=== PATIENT | male | born 1960 | race Caucasian/White ===

== ENCOUNTER 2017-01-10 01:10 | Emergency (ER) | payer OTHER ==
[~2017-01-10] VITALS: Ht 175.3 cm; Wt 88.6 kg
[~2017-01-10 01:10] MED LIST: ESCI10TA PO; QUET100 PO; RISP1 PO
[2017-01-10 01:12] VITALS: BP 144/88; PULSE 93; RESP 16; TEMP 98.9; O2SAT 96
--- NOTE | 2017-01-10 03:44 | RADRPT ---
EXAM DATE/TIME: 01/10/2017 03:31 [facility] COMPARISON: No previous studies available for comparison. INDICATIONS : Pt fell early yesterday. Pain to left knee and lower back. MEDICAL HISTORY : None. SURGICAL HISTORY : None. ENCOUNTER: Initial ACUITY: 1 day PAIN SCORE: 6/10 LOCATION: Left knee FINDINGS: Four view examination of the left knee demonstrates no evidence of fracture or dislocation. Bony min eralization is normal. The articular surfaces are intact. There is fullness in the suprapatella burs a consistent with a joint effusion. There is mild soft tissue swelling over the patella. CONCLUSION: 1. Soft tissue swelling over the patella with no acute fracture or malalignment. 2. Fullness in the suprapatella bursa consistent with a joint effusion. Samuel Sosa MD on January 10, 2017 at 3:42 Board Certified Radiologist. This report was verified electronically.
--- NOTE | 2017-01-10 03:46 | RADRPT ---
EXAM DATE/TIME: 01/10/2017 03:29 [facility] COMPARISON: SPINE LUMBAR LTD (AP & LAT), August 04, 2013, 20:31. INDICATIONS : Pt fell early yesterday. Pain to left knee and lower back. MEDICAL HISTORY : None. SURGICAL HISTORY : None. ENCOUNTER: Initial ACUITY: 1 day PAIN SCORE: 6/10 LOCATION: Bilateral Lumbar FINDINGS: Two view examination was performed. There are five non-rib bearing vertebral bodies. The vertebral bodies are in stable alignment without evidence of acute subluxation or scoliosis. There is a mild re trolisthesis of L2 on L3 again noted. Degenerative disc changes are present with mild disc space narr owing and hypertrophic change. There is sparing of the L5-S1 level. Degenerative joint changes are no aba involving the lower facets. The pedicles are intact. Bony mineralization is normal. No fracture is identified. CONCLUSION: 1. No acute fracture or malalignment. 2. Degenerative disc and degenerative joint changes. Samuel Sosa MD on January 10, 2017 at 3:43 Board Certified Radiologist. This report was verified electronically.
--- NOTE | 2017-01-10 04:12 | PD ---
HPI Chief Complaint: Fall Time Seen by Provider: 03:11 Travel History International Travel<30 days: No Contact w/Intl Traveler<30days: No Traveled to known affect area: No History of Present Illness HPI 56-year-old male states that he was working up on a ladder about 10 feet high when a branch hit him on the head. He states he did not lose consciousness. He has pain to his head and his left knee. He states that this occurred yesterday at about 7 PM. Quality of pain is sharp. Severity is moderate. Pain is worse with movement. He denies other modifying factors. He denies other concurrent complaints. PFSH Past Medical History Inguinal Hernia: Yes (bilateral ) Medical other: Yes (mrsa) Psychiatric: No Tetanus Vaccination: Unknown Past Surgical History Other Surgery: Yes (skin grafts on rt leg) Social History Alcohol Use: Yes (rarely) Tobacco Use: Yes Substance Use: No Allergies-Medications (Allergen,Severity, Reaction): Coded Allergies: No Known Allergies (Unverified , 01/10/17) Reported Meds & Prescriptions Reported Meds & Active Scripts Active Review of Systems Except as stated in HPI: all other systems reviewed are Neg Physical Exam Narrative General: 56 y/o patient in no apparent distress Skin: trauma noted to left forehead with abrasion Eyes: pupils equal, eomi NECK: no pain with palpation, nexus criteria negative Cardiovascular: Regular rate and rhythm Respiratory: normal respiratory effort noted, clear to auscultation bilaterally Abdomen: soft, nontender, nondistended Back: No step-offs, midline spine nontender with palpation Extremities: Pain with palpation of left knee, no lacerations over, neurovascularly intact, no pain with palpation of other joints Neuro: awake, alert, sensation and motor grossly intact Data Data Last Documented VS Vital Signs Date Time Temp Pulse Resp B/P Pulse Ox O2 Delivery O2 Flow Rate FiO2 01/10/17 01:12 98.9 93 16 144/88 96 Room Air Orders Knee, Complete (4vws) (01/10/17 ) Spine, Lumbar - Ltd (Ap & Lat) (01/10/17 ) Ct Brain W/O Iv Contrast(Rout) (01/10/17 ) ^ Knee Immobilizer (01/10/17 03:47) MDM Medical Decision Making Medical Screen Exam Complete: Yes Emergency Medical Condition: Yes Medical Record Reviewed: Yes (pmh confirmed) Interpretation(s) Last 24 hours Impressions Lumbar Spine X-Ray 01/10/17 0000 Signed Impressions: Service Date/Time: Tuesday, January 10, 2017 03:29 - CONCLUSION: 1. No acute fracture or malalignment. 2. Degenerative disc and degenerative joint changes. Samuel Sosa MD Knee X-Ray 01/10/17 0000 Signed Impressions: Service Date/Time: Tuesday, January 10, 2017 03:31 - CONCLUSION: 1. Soft tissue swelling over the patella with no acute fracture or malalignment. 2. Fullness in the suprapatella bursa consistent with a joint effusion. Samuel Sosa MD Head CT 01/10/17 0000 Signed Impressions: Service Date/Time: Tuesday, January 10, 2017 03:36 - CONCLUSION: Negative trauma CT. Samuel Sosa MD Differential Diagnosis Fracture, strain, sprain, bleed Narrative Course Will check left knee x-ray and CT brain and reevaluate ed workup with emergent process, Patient denies any new complaints, knee immobilizer placed, advised outpatient MRI. Patient able to place weight and ambulate, all questions answered. Patient knows that follow up is incumbent on them and to return to the emergency room immediately if new or worsening symptoms develop. Patient given strict return precautions, vitals reviewed and are normal Diagnosis Primary Impression: Strain of left knee Qualified Code: S86.912A - Strain of left knee, initial encounter Additional Impression: Forehead abrasion Qualified Code: S00.81XA - Forehead abrasion, initial encounter Patient Instructions: General Instructions Additional Instructions: return as needed, tylenol as needed, follow with primary thursday, use walker and knee immobilizer with weightbearing as tolerated on left Med/Other Pt SpecificInfo: Prescription(s) given (walker) Disposition: 01 DISCHARGE HOME Condition: Stable Kayla Peralta MD Jan 10, 2017 04:12
--- NOTE | 2017-01-10 04:33 | RADRPT ---
EXAM DATE/TIME: 01/10/2017 03:36 [facility] COMPARISON: No previous studies available for comparison. INDICATIONS : Trauma; fall. RADIATION DOSE: 56.35 CTDIvol (mGy) MEDICAL HISTORY : None SURGICAL HISTORY : None. ENCOUNTER: Initial ACUITY: 1 day PAIN SCALE: 5/10 LOCATION: cranial TECHNIQUE: Multiple contiguous axial images were obtained of the head. Using automated exposure control and adj ustment of the mA and/or kV according to patient size, radiation dose was kept as low as reasonably a chievable to obtain optimal diagnostic quality images. FINDINGS: CEREBRUM: The ventricles are normal for age. No evidence of midline shift, mass lesion, hemorrhage or acute in farction. No extra-axial fluid collections are seen. POSTERIOR FOSSA: The cerebellum and brainstem are intact. The 4th ventricle is midline. The cerebellopontine angle i s unremarkable. EXTRACRANIAL: The visualized portion of the orbits is intact. SKULL: The calvaria is intact. No evidence of skull fracture. CONCLUSION: Negative trauma CT. Samuel Sosa MD on January 10, 2017 at 4:31 Board Certified Radiologist. This report was verified electronically.
== END 2017-01-10 05:21 | disposition home or self-care (01) ==
LOC: NEPC 01:10
DX: S00.81XA Abrasion of other part of head, initial encounter (principal); S83.92XA Sprain of unspecified site of left knee, initial encounter; W20.8XXA Other cause of strike by thrown, projected or falling object, initial encounter; Y93.H2 Activity, gardening and landscaping; Z72.0 Tobacco use
CPT/HCPCS: 70450; 72100; 73564

== ENCOUNTER 2017-01-27 07:06 | Emergency (ER) | payer OTHER ==
[~2017-01-27] VITALS: Ht 172.7 cm; Wt 83.0 kg
[2017-01-27 07:13] VITALS: BP 125/72; PULSE 72; RESP 14; TEMP 98.1; O2SAT 99
--- NOTE | 2017-01-27 07:38 | PD ---
HPI Chief Complaint: Psychiatric Symptoms Time Seen by Provider: 07:23 Travel History International Travel<30 days: No Contact w/Intl Traveler<30days: No Traveled to known affect area: No History of Present Illness HPI 56 y/o male states that he wants to kill his father's and children because he believes that they killed his father who had a heart attack last hernan are maybe the hernan before. He states after this he is given kill himself. He states he doesn't have a current plan how he is going to do it but he is afraid if he gets close to them help think of something. He denies other concurrent complaints other than feeling depressed. He states he's had these thoughts over the past couple of days. PFSH Past Medical History Inguinal Hernia: Yes (bilateral ) Psychiatric: No Past Surgical History Other Surgery: Yes (skin grafts on rt leg) Social History Alcohol Use: Yes (rarely) Tobacco Use: Yes Substance Use: No Allergies-Medications (Allergen,Severity, Reaction): Coded Allergies: No Known Allergies (Unverified , 01/27/17) Reported Meds & Prescriptions Reported Meds & Active Scripts Active No Active Prescriptions or Reported Medications Review of Systems Except as stated in HPI: all other systems reviewed are Neg Physical Exam Narrative GENERAL: Well-nourished, well-developed patient. Flat affect SKIN: Warm and dry. HEAD: Normocephalic and atraumatic. EYES: No injection or drainage. Pupils equal ENT: No nasal drainage noted. NECK: Supple, trachea midline. CARDIOVASCULAR: Regular rate and rhythm RESPIRATORY: No increased effort. No accessory muscle use. EXTREMITIES: No edema. NEUROLOGICAL: Awake and alert. Motor and sensory grossly within normal limits. Normal speech. Data Data Last Documented VS Vital Signs Date Time Temp Pulse Resp B/P Pulse Ox O2 Delivery O2 Flow Rate FiO2 01/27/17 07:42 77 18 01/27/17 07:13 98.1 125/72 99 Orders Complete Blood Count With Diff (01/27/17 07:24) Basic Metabolic Panel (Bmp) (01/27/17 07:24) Psych Screen (01/27/17 07:24) Drug Screen, Random Urine (01/27/17 07:24) Alcohol (Ethanol) (01/27/17 07:24) Blood Glucose (01/27/17 08:46) Labs Laboratory Tests Test 01/27/17 01/27/17 07:30 07:37 White Blood Count 6.5 TH/MM3 Red Blood Count 4.41 MIL/MM3 Hemoglobin 13.0 GM/DL Hematocrit 38.4 % Mean Corpuscular Volume 87.2 FL Mean Corpuscular Hemoglobin 29.4 PG Mean Corpuscular Hemoglobin 33.8 % Concent Red Cell Distribution Width 14.8 % Platelet Count 345 TH/MM3 Mean Platelet Volume 7.5 FL Neutrophils (%) (Auto) 56.2 % Lymphocytes (%) (Auto) 25.8 % Monocytes (%) (Auto) 13.7 % Eosinophils (%) (Auto) 3.1 % Basophils (%) (Auto) 1.2 % Neutrophils # (Auto) 3.7 TH/MM3 Lymphocytes # (Auto) 1.7 TH/MM3 Monocytes # (Auto) 0.9 TH/MM3 Eosinophils # (Auto) 0.2 TH/MM3 Basophils # (Auto) 0.1 TH/MM3 CBC Comment DIFF FINAL Differential Comment Sodium Level 139 MEQ/L Potassium Level 4.2 MEQ/L Chloride Level 105 MEQ/L Carbon Dioxide Level 29.4 MEQ/L Anion Gap 5 MEQ/L Blood Urea Nitrogen 18 MG/DL Creatinine 1.20 MG/DL Estimat Glomerular Filtration 63 ML/MIN Rate Random Glucose 71 MG/DL Calcium Level 8.2 MG/DL Ethyl Alcohol Level LESS THAN 3 MG/DL Urine Opiates Screen NEG Urine Barbiturates Screen NEG Urine Amphetamines Screen POS Urine Benzodiazepines Screen NEG Urine Cocaine Screen POS Urine Cannabinoids Screen POS MDM Medical Decision Making Medical Screen Exam Complete: Yes Emergency Medical Condition: Yes Medical Record Reviewed: Yes (past history confirmed) Interpretation(s) CBC & BMP Diagram 01/27/17 07:30 glucose 100 at 9 per staff Differential Diagnosis Electrolyte abnormality, depression, homicidal ideation Narrative Course Will check blood work and place [place] act and monitor labs wnl, medically cleared Diagnosis Primary Impression: Homicidal behavior Additional Impressions: Suicidal behavior Qualified Code: R46.89 - Suicidal behavior without attempted self-injury Polysubstance abuse Scripts No Active Prescriptions or Reported Meds Kayla Peralta MD Jan 27, 2017 07:38
[2017-01-27 07:51] LABS: AUTOMATED NEUTROPHIL # 3.7 TH/MM3 (1.8-7.7); BASOPHIL # 0.1 TH/MM3 (0-0.2); BASOPHIL % 1.2 % (0.0-2.0); EOSINOPHIL # 0.2 TH/MM3 (0-0.4); EOSINOPHIL % 3.1 % (0.0-4.0); HEMATOCRIT 38.4 % (39.0-51.0); HEMO FLAGS DIFF FINAL; LYMPH % 25.8 % (9.0-44.0); LYMPHOCYTE # 1.7 TH/MM3 (1.0-4.8); MEAN CELL VOLUME 87.2 FL (80.0-100.0); MEAN CORPUSCULAR HEMOGLOBIN 29.4 PG (27.0-34.0); MEAN CORPUSCULAR HGB CONC 33.8 % (32.0-36.0); MONO % 13.7 % (0.0-8.0); NEUT % 56.2 % (16.0-70.0); PLATELET COUNT 345 TH/MM3 (150-450); RED BLOOD COUNT 4.41 MIL/MM3 (4.50-5.90); RED CELL DISTRIBUTION WIDTH 14.8 % (11.6-17.2); WHITE BLOOD COUNT 6.5 TH/MM3 (4.0-11.0)
[2017-01-27 07:58] LABS: AMPHETAMINE, URINE POS (NEG); BARBITURATES, URINE NEG (NEG); COCAINE, URINE POS (NEG)
[2017-01-27 08:15] LABS: ANION GAP 5 MEQ/L (5-15); BICARBONATE 29.4 MEQ/L (21.0-32.0); BLOOD UREA NITROGEN 18 MG/DL (7-18); CHLORIDE 105 MEQ/L (98-107); GLOMERULAR FILTRATION RATE 63 ML/MIN (>89); POTASSIUM 4.2 MEQ/L (3.5-5.1); SODIUM (NA) 139 MEQ/L (136-145)
== END 2017-01-27 16:08 ==
LOC: NEPC 07:06 → NEPJ 16:08
DX: R46.89 Other symptoms and signs involving appearance and behavior (principal); R45.850 Homicidal ideations; Z72.0 Tobacco use
CPT/HCPCS: 80048; 80307; 85025; 99284

== ENCOUNTER 2017-07-14 19:00 | Emergency (ER) | payer OTHER ==
[2017-07-14 19:06] VITALS: BP 141/89; PULSE 81; RESP 16; TEMP 97.9; O2SAT 98
[2017-07-14 20:32] LABS: AUTOMATED NEUTROPHIL # 4.2 TH/MM3 (1.8-7.7); BASOPHIL # 0.1 TH/MM3 (0-0.2); BASOPHIL % 0.9 % (0.0-2.0); EOSINOPHIL # 0.2 TH/MM3 (0-0.4); EOSINOPHIL % 2.5 % (0.0-4.0); HEMATOCRIT 38.8 % (39.0-51.0); HEMO FLAGS DIFF FINAL; LYMPHOCYTE # 2.3 TH/MM3 (1.0-4.8); MEAN CELL VOLUME 89.2 FL (80.0-100.0); MEAN CORPUSCULAR HEMOGLOBIN 30.8 PG (27.0-34.0); MEAN CORPUSCULAR HGB CONC 34.6 % (32.0-36.0); MONO % 8.1 % (0.0-8.0); NEUT % 57.5 % (16.0-70.0); PLATELET COUNT 292 TH/MM3 (150-450); RED BLOOD COUNT 4.35 MIL/MM3 (4.50-5.90); RED CELL DISTRIBUTION WIDTH 13.9 % (11.6-17.2); WHITE BLOOD COUNT 7.3 TH/MM3 (4.0-11.0)
[2017-07-14 20:50] LABS: ANION GAP 8 MEQ/L (5-15); AST (GOT) 71 U/L (15-37); BICARBONATE 25.1 MEQ/L (21.0-32.0); BLOOD UREA NITROGEN 6 MG/DL (7-18); CHLORIDE 106 MEQ/L (98-107); GLOMERULAR FILTRATION RATE 69 ML/MIN (>89); POTASSIUM 3.8 MEQ/L (3.5-5.1); SODIUM (NA) 139 MEQ/L (136-145)
[2017-07-14 20:54] LABS: ALKALINE PHOSPHATASE 59 U/L (45-117); ALT (GPT) 61 U/L (12-78); TOTAL BILIRUBIN ADULT 0.3 MG/DL (0.2-1.0)
[2017-07-14 21:01] LABS: ACETAMINOPHEN LESS THAN 2.0 MCG/ML (10.0-30.0); ALCOHOL 6 MG/DL (0-5)
--- NOTE | 2017-07-14 21:13 | PD ---
HPI Chief Complaint: Psychiatric Symptoms Time Seen by Provider: 21:08 Travel History International Travel<30 days: No Contact w/Intl Traveler<30days: No Traveled to known affect area: No History of Present Illness HPI 57-year-old male presents voluntarily requesting psychiatric evaluation of paranoia. 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 2 days ago he was going on a fishing boat and the other croup members of the boat were acting strange and he felt paranoid. He jumped off the boat. He has continued to feel paranoid since then. He feels like people are constantly watching him. He denies any suicidal or homicidal ideation. He denies any alcohol use. He reports a remote history of methamphetamine use but denies any recent history. His drug screen today is currently positive for amphetamines. [facility] Past Medical History Depression: Yes Diabetes: No Inguinal Hernia: Yes (bilateral ) Musculoskeletal: Yes (LEFT KNEE TORN LIGAMENT) Psychiatric: Yes (was hospitlized for 6 months ) Seizures: No Past Surgical History Other Surgery: Yes (skin grafts on rt leg, hernia surgery ) Social History Alcohol Use: Yes (rarely) Tobacco Use: Yes Substance Use: Yes Allergies-Medications (Allergen,Severity, Reaction): Coded Allergies: No Known Allergies (Unverified Adverse Reaction, Unknown, 07/14/17) Reported Meds & Prescriptions Reported Meds & Active Scripts Active No Active Prescriptions or Reported Medications Review of Systems Except as stated in HPI: all other systems reviewed are Neg Physical Exam Narrative GENERAL: Well-developed well-nourished male in no acute distress SKIN: Warm and dry. HEAD: Atraumatic. Normocephalic. EYES: Pupils equal and round. No scleral icterus. No injection or drainage. ENT: No nasal bleeding or discharge. Mucous membranes pink and moist. NECK: Trachea midline. No JVD. CARDIOVASCULAR: Regular rate and rhythm. No murmur appreciated. RESPIRATORY: No accessory muscle use. Clear to auscultation. Breath sounds equal bilaterally. GASTROINTESTINAL: Abdomen soft, non-tender, nondistended. Hepatic and splenic margins not palpable. MUSCULOSKELETAL: No obvious deformities. No clubbing. No cyanosis. No edema. NEUROLOGICAL: Awake and alert. No obvious cranial nerve deficits. Motor grossly within normal limits. Normal speech. PSYCHIATRIC: Appropriate mood and affect; insight and judgment appear limited. Data Data Last Documented VS Vital Signs Date Time Temp Pulse Resp B/P (MAP) Pulse Ox O2 Delivery O2 Flow Rate FiO2 07/15/17 03:37 73 17 111/67 (82) 96 Room Air 07/14/17 19:06 97.9 Orders Orders Complete Blood Count With Diff (07/14/17 19:21) Comprehensive Metabolic Panel (07/14/17 19:21) Psych Screen (07/14/17 19:21) Drug Screen, Random Urine (07/14/17 19:21) Alcohol (Ethanol) (07/14/17 19:21) Salicylates (Aspirin) (07/14/17 19:21) Tylenol (Acetaminophen) (07/14/17 19:21) Diet Regular Basic (07/15/17 Breakfast) Labs Laboratory Tests Test 07/14/17 19:49 07/14/17 20:19 White Blood Count 7.3 TH/MM3 Red Blood Count 4.35 MIL/MM3 Hemoglobin 13.4 GM/DL Hematocrit 38.8 % Mean Corpuscular Volume 89.2 FL Mean Corpuscular Hemoglobin 30.8 PG Mean Corpuscular Hemoglobin Concent 34.6 % Red Cell Distribution Width 13.9 % Platelet Count 292 TH/MM3 Mean Platelet Volume 8.0 FL Neutrophils (%) (Auto) 57.5 % Lymphocytes (%) (Auto) 31.0 % Monocytes (%) (Auto) 8.1 % Eosinophils (%) (Auto) 2.5 % Basophils (%) (Auto) 0.9 % Neutrophils # (Auto) 4.2 TH/MM3 Lymphocytes # (Auto) 2.3 TH/MM3 Monocytes # (Auto) 0.6 TH/MM3 Eosinophils # (Auto) 0.2 TH/MM3 Basophils # (Auto) 0.1 TH/MM3 CBC Comment DIFF FINAL Differential Comment Blood Urea Nitrogen 6 MG/DL Creatinine 1.10 MG/DL Random Glucose 78 MG/DL Total Protein 7.9 GM/DL Albumin 3.6 GM/DL Calcium Level 8.2 MG/DL Alkaline Phosphatase 59 U/L Aspartate Amino Transf (AST/SGOT) 71 U/L Alanine Aminotransferase (ALT/SGPT) 61 U/L Total Bilirubin 0.3 MG/DL Sodium Level 139 MEQ/L Potassium Level 3.8 MEQ/L Chloride Level 106 MEQ/L Carbon Dioxide Level 25.1 MEQ/L Anion Gap 8 MEQ/L Estimat Glomerular Filtration Rate 69 ML/MIN Urine Opiates Screen NEG Acetaminophen Level LESS THAN 2.0 MCG/ML Urine Barbiturates Screen NEG Urine Amphetamines Screen POS Urine Benzodiazepines Screen NEG Urine Cocaine Screen NEG Urine Cannabinoids Screen POS Ethyl Alcohol Level 6 MG/DL Salicylates Level 2.2 MG/DL MDM Medical Decision Making Medical Screen Exam Complete: Yes Emergency Medical Condition: Yes Medical Record Reviewed: Yes Differential Diagnosis Substance induced paranoia versus acute psychosis versus schizoaffective disorder versus schizophrenia Narrative Course 57-year-old male presents for evaluation of paranoia. His drug screen is positive for amphetamines and cannabinoids. Mental health screening discussed with the patient. Psychiatric screen ordered. The patient is medically cleared for psychiatric disposition. Diagnosis Primary Impression: Polysubstance abuse Additional Impression: Paranoia Scripts No Active Prescriptions or Reported Meds Aniceto Medrano Jul 14, 2017 21:12
[2017-07-14 23:51] VITALS: BP 105/60; PULSE 71; RESP 18; O2SAT 97
[2017-07-15 03:37] VITALS: BP 111/67; PULSE 73; RESP 17; O2SAT 96
[2017-07-15 06:32] VITALS: BP 131/66; PULSE 75; RESP 18
[2017-07-15 11:06] VITALS: BP 131/66; PULSE 75; RESP 18
--- NOTE | 2017-07-15 11:07 | PD ---
Physical Exam Time Seen by Provider: 11:[address] Bansal has evaluated the patient and cleared the patient for discharge. Data Data Last Documented VS Vital Signs Date Time Temp Pulse Resp B/P (MAP) Pulse Ox O2 Delivery O2 Flow Rate FiO2 07/15/17 06:32 75 18 131/66 (87) 07/15/17 03:37 96 Room Air 07/14/17 19:06 97.9 Orders Orders Complete Blood Count With Diff (07/14/17 19:21) Comprehensive Metabolic Panel (07/14/17 19:21) Psych Screen (07/14/17 19:21) Drug Screen, Random Urine (07/14/17 19:21) Alcohol (Ethanol) (07/14/17 19:21) Salicylates (Aspirin) (07/14/17 19:21) Tylenol (Acetaminophen) (07/14/17 19:21) Diet Regular Basic (07/15/17 Breakfast) Diet Regular Basic (07/15/17 Lunch) Labs Laboratory Tests Test 07/14/17 19:49 07/14/17 20:19 White Blood Count 7.3 TH/MM3 Red Blood Count 4.35 MIL/MM3 Hemoglobin 13.4 GM/DL Hematocrit 38.8 % Mean Corpuscular Volume 89.2 FL Mean Corpuscular Hemoglobin 30.8 PG Mean Corpuscular Hemoglobin Concent 34.6 % Red Cell Distribution Width 13.9 % Platelet Count 292 TH/MM3 Mean Platelet Volume 8.0 FL Neutrophils (%) (Auto) 57.5 % Lymphocytes (%) (Auto) 31.0 % Monocytes (%) (Auto) 8.1 % Eosinophils (%) (Auto) 2.5 % Basophils (%) (Auto) 0.9 % Neutrophils # (Auto) 4.2 TH/MM3 Lymphocytes # (Auto) 2.3 TH/MM3 Monocytes # (Auto) 0.6 TH/MM3 Eosinophils # (Auto) 0.2 TH/MM3 Basophils # (Auto) 0.1 TH/MM3 CBC Comment DIFF FINAL Differential Comment Blood Urea Nitrogen 6 MG/DL Creatinine 1.10 MG/DL Random Glucose 78 MG/DL Total Protein 7.9 GM/DL Albumin 3.6 GM/DL Calcium Level 8.2 MG/DL Alkaline Phosphatase 59 U/L Aspartate Amino Transf (AST/SGOT) 71 U/L Alanine Aminotransferase (ALT/SGPT) 61 U/L Total Bilirubin 0.3 MG/DL Sodium Level 139 MEQ/L Potassium Level 3.8 MEQ/L Chloride Level 106 MEQ/L Carbon Dioxide Level 25.1 MEQ/L Anion Gap 8 MEQ/L Estimat Glomerular Filtration Rate 69 ML/MIN Urine Opiates Screen NEG Acetaminophen Level LESS THAN 2.0 MCG/ML Urine Barbiturates Screen NEG Urine Amphetamines Screen POS Urine Benzodiazepines Screen NEG Urine Cocaine Screen NEG Urine Cannabinoids Screen POS Ethyl Alcohol Level 6 MG/DL Salicylates Level 2.2 MG/DL MDM Supervised Visit with [facility]: No Narrative Course Dr. Bansal has evaluated the patient and cleared the patient for discharge. [facility] transport is taking the patient to [facility]. Patient contracts safety. Denies suicidal or homicidal ideations. Patient will be provided community resource packet to /[facility] for follow-up. Has friends and family for support. Patient was medically cleared by alternate provider prior to psych screening. Patient has been evaluated by psychiatry and and is now cleared for discharge. Diagnosis Primary Impression: Polysubstance abuse Additional Impression: Paranoia Referrals: [facility] (Out patient) [facility] Primary Care Physician Psychiatrist [facility] Patient Instructions: General Instructions, Methamphetamine Abuse (ED), Paranoid Personality Disorder (ED), Polysubstance Abuse (ED) Additional Instruction: Contract safety to your self and others Stop Doing drugs Follow-up with psychiatry Follow-up with primary care provider Follow-up with [facility] Return to the emergency department immediately with worsening of symptoms Med/Other Pt SpecificInfo: No Change to Meds, No Meds Exist/No RX given Scripts No Active Prescriptions or Reported Meds Disposition: 01 DISCHARGE HOME Condition: Stable Jessica Butler Jul 15, 2017 11:07
[2017-07-15 11:18] VITALS: BP 147/82; PULSE 72; RESP 16; O2SAT 96
== END 2017-07-15 12:26 ==
LOC: NEPJ 19:00
DX: F15.10 Other stimulant abuse, uncomplicated (principal); F12.10 Cannabis abuse, uncomplicated; F22 Delusional disorders; F32.9 Major depressive disorder, single episode, unspecified; Z72.0 Tobacco use
CPT/HCPCS: 80053; 80307; 85025; 99285

== ENCOUNTER 2017-08-07 00:28 | Emergency (ER) | payer OTHER ==
[~2017-08-07] VITALS: Ht 172.7 cm; Wt 83.0 kg
[2017-08-07 00:40] VITALS: BP 174/108; PULSE 95; RESP 18; TEMP 99; O2SAT 97
--- NOTE | 2017-08-07 01:00 | PD ---
HPI Chief Complaint: Psychiatric Symptoms Time Seen by Provider: 01:00 Travel History International Travel<30 days: No Contact w/Intl Traveler<30days: No Traveled to known affect area: No History of Present Illness HPI 57-year-old male presents to emergency department under [place] act for psychiatric evaluation. Patient was initially seen and medically cleared at [facility]. He was transferred here by police. 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 He states that to avoid this he went to [facility] for a [place] act so he could contact police and let them know what was going on. Denies any suicidal ideations. States he is fearful for his life. Denies any acute medical needs. He has no other symptoms to report. [facility] Past Medical History Depression: Yes Diabetes: No Inguinal Hernia: Yes (bilateral ) Musculoskeletal: Yes (LEFT KNEE TORN LIGAMENT) Psychiatric: Yes (was hospitlized for 6 months ) Seizures: No Past Surgical History Other Surgery: Yes (skin grafts on rt leg, hernia surgery ) Social History Alcohol Use: Yes (rarely) Tobacco Use: Yes Substance Use: Yes Allergies-Medications (Allergen,Severity, Reaction): Coded Allergies: No Known Allergies (Unverified Adverse Reaction, Unknown, 08/07/17) Reported Meds & Prescriptions Reported Meds & Active Scripts Active No Active Prescriptions or Reported Medications Review of Systems Except as stated in HPI: all other systems reviewed are Neg Physical Exam Narrative GENERAL: Well-nourished male patient in no acute distress. SKIN: Focused skin assessment warm/dry. HEAD: Atraumatic. Normocephalic. EYES: Pupils equal and round. No scleral icterus. No injection or drainage. ENT: No nasal bleeding or discharge. Mucous membranes pink and moist. NECK: Trachea midline. No JVD. CARDIOVASCULAR: Elevated rate and rhythm. No murmur appreciated. RESPIRATORY: No accessory muscle use. Clear to auscultation. Breath sounds equal bilaterally. GASTROINTESTINAL: Abdomen soft, non-tender, nondistended. Hepatic and splenic margins not palpable. MUSCULOSKELETAL: No obvious deformities. No clubbing. No cyanosis. No edema. NEUROLOGICAL: Awake and alert. No obvious cranial nerve deficits. Motor grossly within normal limits. Normal speech. Data Data Last Documented VS Vital Signs Date Time Temp Pulse Resp B/P (MAP) Pulse Ox O2 Delivery O2 Flow Rate FiO2 08/07/17 02:02 94 18 145/81 (102) 97 Room Air 08/07/17 00:40 99.0 Orders Orders Psych Screen (08/07/17 00:49) Drug Screen, Random Urine (08/07/17 01:01) Labs Laboratory Tests Test 08/07/17 00:45 Urine Opiates Screen NEG Urine Barbiturates Screen NEG Urine Amphetamines Screen POS Urine Benzodiazepines Screen NEG Urine Cocaine Screen NEG Urine Cannabinoids Screen POS MDM Medical Decision Making Medical Screen Exam Complete: Yes Emergency Medical Condition: Yes Medical Record Reviewed: Yes Differential Diagnosis Mood disorder versus personality disorder versus adjustment reaction disorder Narrative Course 57-year-old male presents emergency department under [place] act. Patient has a medically cleared by [facility] emergency department. I have reviewed the records and patient remains medically cleared. Urine drug screen is added. Patient is medically cleared for psychiatric screening for further evaluation and disposition. Mental health screening discussed with the patient. Psychiatric screen ordered. Diagnosis Primary Impression: Major depressive disorder, recurrent, severe with psychotic features Scripts No Active Prescriptions or Reported Meds Condition: Stable Nicki Stark Aug 07, 2017 01:00
[2017-08-07 02:02] VITALS: BP 145/81; PULSE 94; RESP 18; O2SAT 97
[2017-08-07] MEDS ORDERED: OLANZapine 10 MG TAB PO ONE (08:30)
[2017-08-07 10:24] VITALS: BP 115/67; PULSE 83; RESP 16; O2SAT 97
[2017-08-07 11:10] VITALS: BP 115/67; PULSE 83; RESP 18; O2SAT 97
== END 2017-08-07 13:16 ==
LOC: NEPJ 00:28
DX: F33.3 Major depressive disorder, recurrent, severe with psychotic symptoms (principal); Z72.0 Tobacco use
CPT/HCPCS: 80307; 99285

== ENCOUNTER 2017-09-21 23:44 | Emergency (ER) | payer SELFPAY ==
[~2017-09-21] VITALS: Ht 172.7 cm; Wt 84.3 kg
[2017-09-21 23:56] VITALS: BP 154/97; PULSE 110; RESP 14; TEMP 98.3; O2SAT 94
[2017-09-22 01:14] VITALS: PULSE 95; O2SAT 97
--- NOTE | 2017-09-22 02:15 | PD ---
HPI Chief Complaint: Psychiatric Symptoms Time Seen by Provider: 02:07 Travel History International Travel<30 days: No Contact w/Intl Traveler<30days: No Traveled to known affect area: No History of Present Illness HPI 57-year-old male presents to the emergency department by private transportation for evaluation of depression. Patient states he has a long-standing history of anxiety and depression. Patient states he was recently [place] act recipient in August and stayed at [facility] for 7 days and was discharged with a prescription for lorazepam which she did not fill. Patient states he does not want to take this medication. Patient states that he is presenting at this time due to depression and being very upset about his father's as he is convinced that she had something to do with her father's . Patient states that he is concerned that he would harm the people who now live in his father's home. Patient decided to come to the emergency room. Patient has no specific plan. Patient denies being suicidal. 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 LAST USE WAS AROUND [place]) Allergies-Medications (Allergen,Severity, Reaction): Coded Allergies: No Known Allergies (Unverified Adverse Reaction, Unknown, 09/22/17) Reported Meds & Prescriptions Reported Meds & Active Scripts Active No Active Prescriptions or Reported Medications Review of Systems Except as stated in HPI: all other systems reviewed are Neg General / Constitutional: No: Fever, Chills Eyes: No: Visual changes HENT: No: Headaches Cardiovascular: No: Chest Pain or Discomfort Respiratory: No: Shortness of Breath Gastrointestinal: No: Vomiting, Diarrhea Genitourinary: No: Flank Pain Musculoskeletal: No: Myalgias, Arthralgias Skin: No Rash Neurologic: No: Weakness Psychiatric: Positive: Anxiety, Depression, No: Suicidal Ideations Hematologic/Lymphatic: No: Easy Bruising Physical Exam Narrative GENERAL: Well-developed well-nourished male in no acute distress or respiratory distress; GCS 15 SKIN: Warm and dry. HEAD: Atraumatic. Normocephalic. EYES: Pupils equal and round. No scleral icterus. No injection or drainage. ENT: No nasal bleeding or discharge. Mucous membranes pink and moist. NECK: Trachea midline. No JVD. CARDIOVASCULAR: Regular rate and rhythm. RESPIRATORY: No accessory muscle use. Clear to auscultation. Breath sounds equal bilaterally. GASTROINTESTINAL: Abdomen soft, non-tender, nondistended. Hepatic and splenic margins not palpable. MUSCULOSKELETAL: Extremities without clubbing, cyanosis, or edema. No obvious deformities. NEUROLOGICAL: Awake and alert. No obvious cranial nerve deficits. Motor grossly within normal limits. Five out of 5 muscle strength in the arms and legs. Normal speech. Data Data Last Documented VS Vital Signs Date Time Temp Pulse Resp B/P (MAP) Pulse Ox O2 Delivery O2 Flow Rate FiO2 09/22/17 02:44 78 18 121/65 (83) 95 Room Air 09/21/17 23:56 98.3 Orders Orders Complete Blood Count With Diff (09/22/17 02:07) Comprehensive Metabolic Panel (09/22/17 02:07) Thyroid Stimulating Hormone (09/22/17 02:07) Psych Screen (09/22/17 02:07) Drug Screen, Random Urine (09/22/17 02:07) Alcohol (Ethanol) (09/22/17 02:07) Labs Laboratory Tests Test 09/22/17 02:25 White Blood Count 10.1 TH/MM3 Red Blood Count 4.64 MIL/MM3 Hemoglobin 13.8 GM/DL Hematocrit 39.9 % Mean Corpuscular Volume 86.0 FL Mean Corpuscular Hemoglobin 29.7 PG Mean Corpuscular Hemoglobin Concent 34.5 % Red Cell Distribution Width 12.9 % Platelet Count 134 TH/MM3 Mean Platelet Volume 9.8 FL Neutrophils (%) (Auto) 52.0 % Lymphocytes (%) (Auto) 32.8 % Monocytes (%) (Auto) 10.2 % Eosinophils (%) (Auto) 1.9 % Basophils (%) (Auto) 3.1 % Neutrophils # (Auto) 5.3 TH/MM3 Lymphocytes # (Auto) 3.3 TH/MM3 Monocytes # (Auto) 1.0 TH/MM3 Eosinophils # (Auto) 0.2 TH/MM3 Basophils # (Auto) 0.3 TH/MM3 CBC Comment DIFF FINAL Differential Comment Blood Urea Nitrogen 22 MG/DL Creatinine 1.20 MG/DL Random Glucose 107 MG/DL Total Protein 8.1 GM/DL Albumin 3.5 GM/DL Calcium Level 8.1 MG/DL Alkaline Phosphatase 66 U/L Aspartate Amino Transf (AST/SGOT) 118 U/L Alanine Aminotransferase (ALT/SGPT) 191 U/L Total Bilirubin 0.4 MG/DL Sodium Level 134 MEQ/L Potassium Level 4.9 MEQ/L Chloride Level 104 MEQ/L Carbon Dioxide Level 23.7 MEQ/L Anion Gap 6 MEQ/L Estimat Glomerular Filtration Rate 62 ML/MIN Thyroid Stimulating Hormone 3rd Gen 5.890 uIU/ML Ethyl Alcohol Level LESS THAN 3 MG/DL MDM Medical Decision Making Medical Screen Exam Complete: Yes Emergency Medical Condition: Yes Medical Record Reviewed: Yes Differential Diagnosis Anxiety, depression, mood disorder, polysubstance ingestion, Narrative Course Specimens collected and sent for resulting; patient does not have a plan; does not report that he wants to actually harm anyone --just angry and depressed about his father's and unresolved family issues; patient denies being suicidal @ 4:30 AM patient again denies being suicidal or homicidal ---"I don't want to hurt anyone; I don't want to harm myself" @ 5:20 patient medically cleared/refuses to provide urine specimen is leaving with security voluntarily to go to [facility] for mental health screening to [facility] Diagnosis Primary Impression: Depression Additional Impression: H/O: substance abuse Scripts No Active Prescriptions or Reported Meds Meenakshi Marie MD Sep 22, 2017 02:15
[2017-09-22 02:44] VITALS: BP 121/65; PULSE 78; RESP 18; O2SAT 95
[2017-09-22 02:44] LABS: AUTOMATED NEUTROPHIL # 5.3 TH/MM3 (1.8-7.7); BASOPHIL # 0.3 TH/MM3 (0-0.2); BASOPHIL % 3.1 % (0.0-2.0); EOSINOPHIL # 0.2 TH/MM3 (0-0.4); EOSINOPHIL % 1.9 % (0.0-4.0); HEMATOCRIT 39.9 % (39.0-51.0); HEMOGLOBIN 13.8 GM/DL (13.0-17.0); LYMPH % 32.8 % (9.0-44.0); LYMPHOCYTE # 3.3 TH/MM3 (1.0-4.8); MEAN CORPUSCULAR HEMOGLOBIN 29.7 PG (27.0-34.0); MEAN CORPUSCULAR HGB CONC 34.5 % (32.0-36.0); MEAN PLATELET VOLUME 9.8 FL (7.0-11.0); MONO % 10.2 % (0.0-8.0); PLATELET COUNT 134 TH/MM3 (150-450); RED BLOOD COUNT 4.64 MIL/MM3 (4.50-5.90); RED CELL DISTRIBUTION WIDTH 12.9 % (11.6-17.2); WHITE BLOOD COUNT 10.1 TH/MM3 (4.0-11.0)
[2017-09-22 02:50] LABS: CHLORIDE 104 MEQ/L (98-107); SODIUM (NA) 134 MEQ/L (136-145)
[2017-09-22 02:55] LABS: ALBUMIN 3.5 GM/DL (3.4-5.0); BICARBONATE 23.7 MEQ/L (21.0-32.0); BLOOD UREA NITROGEN 22 MG/DL (7-18); CALCIUM 8.1 MG/DL (8.5-10.1); GLUCOSE,RANDOM 107 MG/DL (74-106)
[2017-09-22 02:57] LABS: AST (GOT) 118 U/L (15-37)
[2017-09-22 02:58] LABS: ALT (GPT) 191 U/L (12-78); GLOMERULAR FILTRATION RATE 62 ML/MIN (>89)
[2017-09-22 02:59] LABS: TOTAL BILIRUBIN ADULT 0.4 MG/DL (0.2-1.0); TOTAL PROTEIN 8.1 GM/DL (6.4-8.2)
[2017-09-22 03:00] LABS: ALKALINE PHOSPHATASE 66 U/L (45-117)
[2017-09-22 07:00] VITALS: BP 132/74; PULSE 63; RESP 18; O2SAT 97
--- NOTE | 2017-09-22 08:29 | PD ---
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 This patient has had multiple visits in the past year for her polysubstance abuse and depression. The last visit was August 07, at which time he was admitted to [facility] for 7 days. Patient seen in his room, sitting up on the bed , with a Argenis Rae. Patient alert and oriented 4. At the onset of assessment patient began talking about how he needed to be at work. 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 Patient speech is clear, although he requires some redirection to stay on topic and attempts to manipulate the conversation. He keeps bringing up that he was given a prescription for lorazepam from [facility] which he claims to have never filled. When asked why he did not fill the prescription, he states "I did not want to take any pills". Patient denies illicit substance use, although his toxicology screen is positive for amphetamines, cannabinoids and cocaine. When asked when he last used these substances by name, he states "oh they must have shown up in my blood ". Patient relates that he would like a prescription for "60 Lorazepam". Explained to patient that follow-up should have been through [facility]. Patient denies SI, HI, auditory and visual hallucinations, and delusions. When asked if he has plans to harm his father's and children, the patient denies it. He denies having firearms. Patient is future oriented as he mentions the need to get on the boat before it leaves multiple times and states that he needs his job. He reports living alone, owns his own house, however he states that he spends approximately one third of the year on the boat for work. When advised that he would not be provided with a prescription for 60 lorazepam, patient stated "then I need to get back to work". Patient to be discharged with 2 bus passes and information for follow-up at [facility]. Patient advised if he develops suicidal ideations, homicidal ideations, delusions or hallucinations he should return to the ED for further evaluation. Otherwise, patient should follow-up at [facility] for outpatient management of medications. Patient states that he understands follow-up plan. [facility] Past Medical History Narrative Medical Patient is has no physical complaints at this time. 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 Patient has had several admissions over the last one being to [facility]. Patient fails to follow up outpatient, and continues to use illicit substances. Hx Psychiatric Treatment: PATIENT WAS LAST ADMITTED TO [facility] [place]. HX POLYSUBSTANCE ABUSE History of Inpatient Treatment: Yes Guns or firearms in home: No Social History Patient is 57-year-old , single male, who reports owning his own home. 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 Hx Alcohol Use: Yes ("RARELY") Hx Tobacco Use: Yes ("1 PACK EVERY 3 DAYS" STATED 09/22/17) Hx Substance Use: Yes (DENIES CURRENT USE) Substance Use Type: Crack, Marijuana, Amphetamines-Stimulants, Cocaine Hx of Substance Use Treatment: Yes Family Psychiatric History Denies family hx of mental illness. Allergies-Medications (Allergen,Severity, Reaction): Coded Allergies: No Known Allergies (Unverified Adverse Reaction, Unknown, 09/22/17) Reported Meds & Prescriptions Reported Meds & Active Scripts Active No Active Prescriptions or Reported Medications Narrative Medication States "I don't like to take pills". Mental Status Examination Appearance: Appropriate, Well dressed/well groomed Consciousness: Alert Orientation: x4 Motor Activity: Normal gait Speech: Pressured Language: Adequate Fund of Knowledge: Adequate Attention and Concentration: Adequate Memory: Unremarkable Mood: Appropriate, Good Affect: Appropriate, Anxious (slightly) Thought Process & Associations: Intact, Goal directed (Patient mentioned his desire to receive script for "60 Lorazepam" multiple times) Thought Content: Appropriate Hallucination Type: None Delusion Type: None Suicidal Ideation: No Suicidal Plan: No Suicidal Intention: No Homicidal Ideation: No Homicidal Plan: No Homicidal Intention: No Insight: Adequate Judgment: Adequate Mental Status Exam Remarks Patient denies SI, HI, auditory/visual hallucinations and delusions. He is alert and oriented. Patient future oriented. Speech clear, although pressured, as he explains why he needs a prescription for "60 lorazepam". Multiple attempts made at manipulating the conversation. He is future oriented and advises that he "needs to get to the boat before it leaves. I need my job". When advised that he would not receive a prescription for the lorazepam, and would need to follow-up outpatient for medication management, patient states "I kind of figured that I should have gone there". Patient acknowledges understanding of follow-up and appears at ease with this plan. MDM Medical Decision Making Medical Record Reviewed: Yes Assessment/Plan Follow-up outpatient for medication management. Orders Orders Complete Blood Count With Diff (09/22/17 02:07) Comprehensive Metabolic Panel (09/22/17 02:07) Thyroid Stimulating Hormone (09/22/17 02:07) Psych Screen (09/22/17 02:07) Drug Screen, Random Urine (09/22/17 02:07) Alcohol (Ethanol) (09/22/17 02:07) Diet Regular Basic (09/22/17 Breakfast) Results Vital Signs Date Time Temp Pulse Resp B/P (MAP) Pulse Ox O2 Delivery O2 Flow Rate FiO2 09/22/17 07:00 63 18 132/74 (93) 97 09/22/17 05:21 09/22/17 02:44 78 18 121/65 (83) 95 Room Air 09/22/17 01:14 95 97 Room Air 09/21/17 23:56 98.3 110 14 154/97 (116) 94 Laboratory Tests Test 09/22/17 02:25 09/22/17 06:30 White Blood Count 10.1 Red Blood Count 4.64 Hemoglobin 13.8 Hematocrit 39.9 Mean Corpuscular Volume 86.0 Mean Corpuscular Hemoglobin 29.7 Mean Corpuscular Hemoglobin Concent 34.5 Red Cell Distribution Width 12.9 Platelet Count 134 Mean Platelet Volume 9.8 Neutrophils (%) (Auto) 52.0 Lymphocytes (%) (Auto) 32.8 Monocytes (%) (Auto) 10.2 Eosinophils (%) (Auto) 1.9 Basophils (%) (Auto) 3.1 Neutrophils # (Auto) 5.3 Lymphocytes # (Auto) 3.3 Monocytes # (Auto) 1.0 Eosinophils # (Auto) 0.2 Basophils # (Auto) 0.3 CBC Comment DIFF FINAL Differential Comment Blood Urea Nitrogen 22 Creatinine 1.20 Random Glucose 107 Total Protein 8.1 Albumin 3.5 Calcium Level 8.1 Alkaline Phosphatase 66 Aspartate Amino Transf (AST/SGOT) 118 Alanine Aminotransferase (ALT/SGPT) 191 Total Bilirubin 0.4 Sodium Level 134 Potassium Level 4.9 Chloride Level 104 Carbon Dioxide Level 23.7 Anion Gap 6 Estimat Glomerular Filtration Rate 62 Thyroid Stimulating Hormone 3rd Gen 5.890 Ethyl Alcohol Level LESS THAN 3 Urine Opiates Screen NEG Urine Barbiturates Screen NEG Urine Amphetamines Screen POS Urine Benzodiazepines Screen NEG Urine Cocaine Screen POS Urine Cannabinoids Screen POS Diagnosis Primary Impression: Substance induced mood disorder Psychiatrically Cleared: Yes Referrals: [facility] (Out patient) Departure Forms: Tests/Procedures Patient Instructions: General Instructions Prescriptions No Active Prescriptions or Reported Meds Disposition: 01 DISCHARGE HOME Condition: Stable ChadBeatrice kothari ISRAEL Sep 22, 2017 08:29
--- NOTE | 2017-09-22 08:31 | PD ---
Physical Exam Time Seen by Provider: 08:29 ISRAEL Diehl has evaluated the patient and cleared the patient for discharge. The patient will be provided bus passes and will follow-up [facility]. Data Data Last Documented VS Vital Signs Date Time Temp Pulse Resp B/P (MAP) Pulse Ox O2 Delivery O2 Flow Rate FiO2 09/22/17 07:00 63 18 132/74 (93) 97 09/22/17 02:44 Room Air 09/21/17 23:56 98.3 Orders Orders Complete Blood Count With Diff (09/22/17 02:07) Comprehensive Metabolic Panel (09/22/17 02:07) Thyroid Stimulating Hormone (09/22/17 02:07) Psych Screen (09/22/17 02:07) Drug Screen, Random Urine (09/22/17 02:07) Alcohol (Ethanol) (09/22/17 02:07) Diet Regular Basic (09/22/17 Breakfast) Labs Laboratory Tests Test 09/22/17 02:25 09/22/17 06:30 White Blood Count 10.1 TH/MM3 Red Blood Count 4.64 MIL/MM3 Hemoglobin 13.8 GM/DL Hematocrit 39.9 % Mean Corpuscular Volume 86.0 FL Mean Corpuscular Hemoglobin 29.7 PG Mean Corpuscular Hemoglobin Concent 34.5 % Red Cell Distribution Width 12.9 % Platelet Count 134 TH/MM3 Mean Platelet Volume 9.8 FL Neutrophils (%) (Auto) 52.0 % Lymphocytes (%) (Auto) 32.8 % Monocytes (%) (Auto) 10.2 % Eosinophils (%) (Auto) 1.9 % Basophils (%) (Auto) 3.1 % Neutrophils # (Auto) 5.3 TH/MM3 Lymphocytes # (Auto) 3.3 TH/MM3 Monocytes # (Auto) 1.0 TH/MM3 Eosinophils # (Auto) 0.2 TH/MM3 Basophils # (Auto) 0.3 TH/MM3 CBC Comment DIFF FINAL Differential Comment Blood Urea Nitrogen 22 MG/DL Creatinine 1.20 MG/DL Random Glucose 107 MG/DL Total Protein 8.1 GM/DL Albumin 3.5 GM/DL Calcium Level 8.1 MG/DL Alkaline Phosphatase 66 U/L Aspartate Amino Transf (AST/SGOT) 118 U/L Alanine Aminotransferase (ALT/SGPT) 191 U/L Total Bilirubin 0.4 MG/DL Sodium Level 134 MEQ/L Potassium Level 4.9 MEQ/L Chloride Level 104 MEQ/L Carbon Dioxide Level 23.7 MEQ/L Anion Gap 6 MEQ/L Estimat Glomerular Filtration Rate 62 ML/MIN Thyroid Stimulating Hormone 3rd Gen 5.890 uIU/ML Ethyl Alcohol Level LESS THAN 3 MG/DL Urine Opiates Screen NEG Urine Barbiturates Screen NEG Urine Amphetamines Screen POS Urine Benzodiazepines Screen NEG Urine Cocaine Screen POS Urine Cannabinoids Screen POS MDM Supervised Visit with [facility]: No Narrative Course ISRAEL Chacko has evaluated the patient and cleared the patient for discharge. The patient will be provided bus passes and will follow-up [facility]. Patient contracts safety. Denies suicidal or homicidal ideations. Patient will be provided community resource packet to [facility] for follow-up. Has friends and family for support. Patient was medically cleared by alternate provider prior to psych screening. Patient has been evaluated by psychiatry and and is now cleared for discharge. Diagnosis Primary Impression: Depression Additional Impression: H/O: substance abuse Referrals: [facility] (Out patient) [facility] Primary Care Physician Psychiatrist [facility] Patient Instructions: General Instructions, Polysubstance Abuse (ED) Departure Forms: Tests/Procedures Additional Instruction: Contract safety to your self and others Stop Using drugs Follow-up with psychiatry Follow-up with primary care provider Follow-up with Tomas Jarvis Return to the emergency department immediately with worsening of symptoms Med/Other Pt SpecificInfo: No Change to Meds, No Meds Exist/No RX given Scripts No Active Prescriptions or Reported Meds Disposition: 01 DISCHARGE HOME Condition: Stable Jessica Butler Sep 22, 2017 08:31
== END 2017-09-22 09:08 | disposition home or self-care (01) ==
LOC: PHED 23:44 → NEPJ 09-22 09:08
DX: F32.9 Major depressive disorder, single episode, unspecified (principal); F19.94 Other psychoactive substance use, unspecified with psychoactive substance-induced mood disorder; F17.210 Nicotine dependence, cigarettes, uncomplicated; F41.9 Anxiety disorder, unspecified
CPT/HCPCS: 80053; 80307; 84443; 85025; 99283

== ENCOUNTER 2017-10-01 20:54 | Emergency (ER) | payer SELFPAY ==
[~2017-10-01] VITALS: Ht 170.2 cm; Wt 81.5 kg
[2017-10-01 21:40] VITALS: BP 161/98; PULSE 99; RESP 16; TEMP 99.1; O2SAT 98
[2017-10-01] MEDS ORDERED: IBUP-232 PO (22:27)
--- NOTE | 2017-10-01 22:27 | PD ---
HPI Chief Complaint: Musculoskeletal Complaint Time Seen by Provider: 22:12 Travel History International Travel<30 days: No Contact w/Intl Traveler<30days: No Traveled to known affect area: No History of Present Illness HPI Patient 57-year-old male complains of left knee pain and swelling. Patient states that he has ligament injury left knee for the past 9 months. Patient was seen by the emergency room and orthopedist. Patient states that no surgical intervention was needed. Patient states that he has intermittent exacerbation of left knee pain since then. Patient states that he has increasing pain and swelling for the past several days. Patient requested left need to be drained of fluid tonight. Patient denies any new injury. Patient denies any fever chills. 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) Pneumonia: Yes Seizures: Yes Sleep Apnea: Yes Tetanus Vaccination: < 5 Years Influenza Vaccination: No Past Surgical History Eye Surgery: Yes (fish hook injury) Other Surgery: Yes (skin grafts on rt leg, hernia surgery x2) Social History Alcohol Use: Yes ("RARELY") Tobacco Use: Yes ( STATED 09/22/17) Substance Use: Yes (DENIES CURRENT USE) Allergies-Medications (Allergen,Severity, Reaction): Coded Allergies: No Known Allergies (Unverified Adverse Reaction, Unknown, 10/01/17) Reported Meds & Prescriptions Reported Meds & Active Scripts Active No Active Prescriptions or Reported Medications Review of Systems General / Constitutional: No: Fever Eyes: No: Visual changes HENT: No: Headaches Cardiovascular: No: Chest Pain or Discomfort Respiratory: No: Shortness of Breath Gastrointestinal: No: Abdominal Pain Genitourinary: No: Dysuria Musculoskeletal: Positive: Pain Skin: No Rash Neurologic: No: Weakness Psychiatric: No: Depression Endocrine: No: Polydipsia Hematologic/Lymphatic: No: Easy Bruising Physical Exam Narrative GENERAL: Well-nourished, well-developed patient. SKIN: Focused skin assessment warm/dry. HEAD: Normocephalic. EYES: No scleral icterus. No injection or drainage. NECK: Supple, trachea midline. No JVD or lymphadenopathy. CARDIOVASCULAR: Regular rate and rhythm without murmurs, gallops, or rubs. RESPIRATORY: Breath sounds equal bilaterally. No accessory muscle use. GASTROINTESTINAL: Abdomen soft, non-tender, nondistended. MUSCULOSKELETAL: No cyanosis, or edema. BACK: Nontender without obvious deformity. No CVA tenderness. Patient has moderate tenderness on palpation medial collateral ligament area of the left knee. Full range of motion the left knee joint. Left knee joint stable. No effusion noted. Data Data Last Documented VS Vital Signs Date Time Temp Pulse Resp B/P (MAP) Pulse Ox O2 Delivery O2 Flow Rate FiO2 10/01/17 21:40 99.1 99 16 161/98 (119) 98 Orders Orders Ibuprofen (Motrin) (10/01/17 22:30) Splint Or Brace Apply/Monitor (10/01/17 22:21) [facility] Medical Decision Making Medical Screen Exam Complete: Yes Emergency Medical Condition: Yes Differential Diagnosis Differential diagnosis including acute exacerbation of chronic left knee pain. Narrative Course 57-year-old male with acute exacerbation of left knee pain. History of left knee with ligament injury. I do not see any indication for left knee aspiration at this point. Yung wrap applied to left knee. Ibuprofen 600 mg p.o. given. Diagnosis Primary Impression: Injury of ligament of left knee Qualified Codes: S89.92XA - Unspecified injury of left lower leg, initial encounter Patient Instructions: General Instructions Additional Instructions: Yung wrap applied to left knee. Ibuprofen as needed for pain. Follow-up with an orthopedist. Med/Other Pt SpecificInfo: Prescription(s) given Scripts Ibuprofen (Ibuprofen) 600 Mg Tab 600 MG PO TID for Pain, #60 TAB 0 Refills Prov: Roberth Lauren MD 10/01/17 Disposition: 01 DISCHARGE HOME Condition: Stable Roberth Lauren MD Oct 01, 2017 22:27
[2017-10-01] MEDS ORDERED: IBUPROFEN 600 MG TAB PO ONE (22:30)
== END 2017-10-01 23:00 | disposition home or self-care (01) ==
LOC: NEPD 20:54
DX: S89.92XA Unspecified injury of left lower leg, initial encounter (principal); X58.XXXA Exposure to other specified factors, initial encounter
CPT/HCPCS: 99283

== ENCOUNTER 2017-10-02 00:20 | Emergency (ER) | payer SELFPAY ==
[~2017-10-02] VITALS: Ht 170.2 cm; Wt 81.5 kg
[~2017-10-02 00:20] MED LIST changes: -ESCI10TA PO; +IBUP-232 PO; -QUET100 PO; -RISP1 PO
[2017-10-02 00:43] VITALS: BP 151/95; PULSE 79; RESP 18; TEMP 97.5; O2SAT 98
--- NOTE | 2017-10-02 02:33 | PD ---
HPI Chief Complaint: GI Complaint Time Seen by Provider: 02:06 Travel History International Travel<30 days: No Contact w/Intl Traveler<30days: No Traveled to known affect area: No History of Present Illness HPI 57-year-old male who initially told triage that he vomited up some blood, tells me that he is here for evaluation of his mental state. He tells me that his father and was cremated and did not have any tests done before cremation as to why he read this occurred several months ago, and he recently found this information out. He states that this is causing him a lot of mental distress. He denies any physical complaints. He is denying suicidal or homicidal ideation at this time. Denies illicit drug use. Chart review shows that the patient has been here in the past and urine drug screen is positive for amphetamines and cocaine. 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) Pneumonia: Yes Seizures: Yes Sleep Apnea: Yes Tetanus Vaccination: < 5 Years Influenza Vaccination: No Past Surgical History Eye Surgery: Yes (fish hook injury) Other Surgery: Yes (skin grafts on rt leg, hernia surgery x2) Social History Alcohol Use: Yes ("RARELY") Tobacco Use: Yes ( STATED 09/22/17) Substance Use: Yes (DENIES CURRENT USE) Allergies-Medications (Allergen,Severity, Reaction): Coded Allergies: No Known Allergies (Unverified Adverse Reaction, Unknown, 10/01/17) Reported Meds & Prescriptions Reported Meds & Active Scripts Active Ibuprofen 600 Mg Tab 600 Mg PO TID Review of Systems Except as stated in HPI: all other systems reviewed are Neg Physical Exam Narrative GENERAL: Well-developed, well-nourished, poor eye contact, become slightly agitated during history and physical SKIN: Focused skin assessment warm/dry. HEAD: Atraumatic. Normocephalic. EYES: Pupils equal and round. No scleral icterus. No injection or drainage. ENT: No nasal bleeding or discharge. Mucous membranes pink and moist. NECK: Trachea midline. No JVD. CARDIOVASCULAR: Regular rate and rhythm. No murmur appreciated. RESPIRATORY: No accessory muscle use. Clear to auscultation. Breath sounds equal bilaterally. GASTROINTESTINAL: Abdomen soft, non-tender, nondistended. MUSCULOSKELETAL: No obvious deformities. No clubbing. No cyanosis. No edema. NEUROLOGICAL: Awake and alert. No obvious cranial nerve deficits. Motor grossly within normal limits. Normal speech. PSYCHIATRIC: Poor eye contact, flat affect, tangential thoughts Data Data Last Documented VS Vital Signs Date Time Temp Pulse Resp B/P (MAP) Pulse Ox O2 Delivery O2 Flow Rate FiO2 10/02/17 00:43 97.5 79 18 151/95 (113) 98 Orders Orders Complete Blood Count With Diff (10/02/17 00:48) Comprehensive Metabolic Panel (10/02/17 00:48) Prothrombin Time / Inr (Pt) (10/02/17 00:48) Act Partial Throm Time (Ptt) (10/02/17 00:48) Ecg Monitoring (10/02/17 00:48) Orthostatic Vital Signs (10/02/17 00:48) Oximetry (10/02/17 00:48) Oxygen Administration (10/02/17 00:48) Iv Access Insert/Monitor (10/02/17 00:48) Type And Screen (10/02/17 00:48) Urinalysis - C+S If Indicated (10/02/17 00:48) Iv Access Insert/Monitor (10/02/17 00:48) Lipase (10/02/17 00:48) Drug Screen, Random Urine (10/02/17 02:14) MDM Medical Decision Making Medical Screen Exam Complete: Yes Emergency Medical Condition: Yes Differential Diagnosis Acute psychosis, depression, illicit drug abuse, metabolic abnormality Narrative Course The patient is refusing blood work, and would like to leave AMA. He is denies suicidal or homicidal ideation. He has a capacity to make this decision and was told that he could return at any time and should return for any concerning symptoms. AMA: The risks of leaving against medical advice without further evaluation treatment were discussed with the patient. These risks include cardiac dysfunction, cardiac dysrhythmia, possible heart attack, possible stroke or . The patient indicated understanding of these risks and appeared to have the capacity to make this decision. Diagnosis Primary Impression: Left against medical advice Disposition: 07 AGAINST MEDICAL ADVICE Condition: Stable Pedro Abarca MD Oct 02, 2017 02:33
== END 2017-10-02 03:12 | disposition left against medical advice (07) ==
LOC: NEPE 00:20
DX: K92.0 Hematemesis (principal); F32.9 Major depressive disorder, single episode, unspecified; Z72.0 Tobacco use
CPT/HCPCS: 99281

== ENCOUNTER 2017-10-05 01:49 | Emergency (ER) | payer SELFPAY ==
[~2017-10-05] VITALS: Ht 170.2 cm; Wt 81.8 kg
[2017-10-05 01:57] VITALS: BP 141/84; PULSE 91; RESP 20; TEMP 98.7; O2SAT 96
[2017-10-05 02:10] VITALS: O2SAT 97
--- NOTE | 2017-10-05 02:11 | PD ---
HPI Chief Complaint: Seizure Time Seen by Provider: 02:00 Travel History International Travel<30 days: No Contact w/Intl Traveler<30days: No Traveled to known affect area: No History of Present Illness HPI 57-year-old male complains of seizure. Patient states that he has history of seizure and was on Dilantin in the past. Patient states that he has not been taking Dilantin recently. Patient states that he had a seizure episode this evening. Patient denies any headache. Patient denies any chest pain or shortness of breath. Patient denies abdominal pain. Patient denies any focal weakness or numbness of extremity. Patient denies any alcohol or substance abuse recently. Patient however has remote history of substance abuse in the past. 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) Pneumonia: Yes Seizures: Yes Sleep Apnea: Yes Past Surgical History Eye Surgery: Yes (fish hook injury) Other Surgery: Yes (skin grafts on rt leg, hernia surgery x2) Social History Alcohol Use: Yes ("RARELY") Tobacco Use: Yes ( STATED 09/22/17) Substance Use: Yes (DENIES CURRENT USE) Allergies-Medications (Allergen,Severity, Reaction): Coded Allergies: No Known Allergies (Unverified Adverse Reaction, Unknown, 10/01/17) Reported Meds & Prescriptions Reported Meds & Active Scripts Active Ibuprofen 600 Mg Tab 600 Mg PO TID Review of Systems General / Constitutional: No: Fever Eyes: No: Visual changes HENT: No: Headaches Cardiovascular: No: Chest Pain or Discomfort Respiratory: No: Shortness of Breath Gastrointestinal: No: Abdominal Pain Genitourinary: No: Dysuria Musculoskeletal: No: Pain Skin: No Rash Neurologic: No: Weakness Psychiatric: No: Depression Endocrine: No: Polydipsia Hematologic/Lymphatic: No: Easy Bruising Physical Exam Narrative GENERAL: Well-nourished, well-developed patient. SKIN: Focused skin assessment warm/dry. HEAD: Normocephalic. EYES: No scleral icterus. No injection or drainage. NECK: Supple, trachea midline. No JVD or lymphadenopathy. CARDIOVASCULAR: Regular rate and rhythm without murmurs, gallops, or rubs. RESPIRATORY: Breath sounds equal bilaterally. No accessory muscle use. GASTROINTESTINAL: Abdomen soft, non-tender, nondistended. MUSCULOSKELETAL: No cyanosis, or edema. BACK: Nontender without obvious deformity. No CVA tenderness. Neurologic exam normal. Data Data Last Documented VS Vital Signs Date Time Temp Pulse Resp B/P (MAP) Pulse Ox O2 Delivery O2 Flow Rate FiO2 10/05/17 02:10 97 Room Air 10/05/17 01:57 98.7 91 20 141/84 (103) Orders Orders Complete Blood Count With Diff (10/05/17 02:06) Basic Metabolic Panel (Bmp) (10/05/17 02:06) Ecg Monitoring (10/05/17 02:06) Oximetry (10/05/17 02:06) Drug Screen, Random Urine (10/05/17 02:06) Iv Access Insert/Monitor (10/05/17 02:06) Labs Laboratory Tests Test 10/05/17 02:26 10/05/17 02:51 White Blood Count 9.8 TH/MM3 Red Blood Count 4.53 MIL/MM3 Hemoglobin 13.7 GM/DL Hematocrit 39.5 % Mean Corpuscular Volume 87.1 FL Mean Corpuscular Hemoglobin 30.3 PG Mean Corpuscular Hemoglobin Concent 34.8 % Red Cell Distribution Width 13.6 % Platelet Count 226 TH/MM3 Mean Platelet Volume 7.6 FL Neutrophils (%) (Auto) 86.1 % Lymphocytes (%) (Auto) 8.8 % Monocytes (%) (Auto) 4.1 % Eosinophils (%) (Auto) 0.5 % Basophils (%) (Auto) 0.5 % Neutrophils # (Auto) 8.5 TH/MM3 Lymphocytes # (Auto) 0.9 TH/MM3 Monocytes # (Auto) 0.4 TH/MM3 Eosinophils # (Auto) 0.0 TH/MM3 Basophils # (Auto) 0.1 TH/MM3 CBC Comment DIFF FINAL Differential Comment Blood Urea Nitrogen 14 MG/DL Creatinine 1.21 MG/DL Random Glucose 101 MG/DL Calcium Level 8.0 MG/DL Sodium Level 138 MEQ/L Potassium Level 3.7 MEQ/L Chloride Level 104 MEQ/L Carbon Dioxide Level 28.1 MEQ/L Anion Gap 6 MEQ/L Estimat Glomerular Filtration Rate 62 ML/MIN Urine Opiates Screen POS Urine Barbiturates Screen NEG Urine Amphetamines Screen NEG Urine Benzodiazepines Screen NEG Urine Cocaine Screen NEG Urine Cannabinoids Screen NEG MDM Medical Decision Making Medical Screen Exam Complete: Yes Emergency Medical Condition: Yes Interpretation(s) 4:20 AM. CBC within normal limits. BMP within normal limits. Urine drug screen positive for opiates. Differential Diagnosis Differential diagnosis including seizure, malingering, substance abuse. Narrative Course 57-year-old male with complains of seizure. Patient states that he has history of seizure and was on Dilantin the past. In reviewing medical record, I do not see any evidence of patient was ever on Dilantin or history of seizure in the past. Diagnosis Primary Impression: Alleged seizure Patient Instructions: General Instructions Additional Instructions: Follow-up with local personal physician and neurologist. Return as needed. Med/Other Pt SpecificInfo: No Meds Exist/No RX given Disposition: 01 DISCHARGE HOME Condition: Stable Roberth Lauren MD Oct 05, 2017 02:11
[2017-10-05 02:32] LABS: AUTOMATED NEUTROPHIL # 8.5 TH/MM3 (1.8-7.7); BASOPHIL # 0.1 TH/MM3 (0-0.2); BASOPHIL % 0.5 % (0.0-2.0); EOSINOPHIL % 0.5 % (0.0-4.0); HEMATOCRIT 39.5 % (39.0-51.0); HEMOGLOBIN 13.7 GM/DL (13.0-17.0); LYMPH % 8.8 % (9.0-44.0); LYMPHOCYTE # 0.9 TH/MM3 (1.0-4.8); MEAN CELL VOLUME 87.1 FL (80.0-100.0); MEAN CORPUSCULAR HEMOGLOBIN 30.3 PG (27.0-34.0); MEAN CORPUSCULAR HGB CONC 34.8 % (32.0-36.0); MEAN PLATELET VOLUME 7.6 FL (7.0-11.0); MONO % 4.1 % (0.0-8.0); MONOCYTE # 0.4 TH/MM3 (0-0.9); NEUT % 86.1 % (16.0-70.0); PLATELET COUNT 226 TH/MM3 (150-450); RED BLOOD COUNT 4.53 MIL/MM3 (4.50-5.90); RED CELL DISTRIBUTION WIDTH 13.6 % (11.6-17.2); WHITE BLOOD COUNT 9.8 TH/MM3 (4.0-11.0)
[2017-10-05 02:57] LABS: BICARBONATE 28.1 MEQ/L (21.0-32.0); CREATININE 1.21 MG/DL (0.60-1.30)
== END 2017-10-05 04:45 | disposition home or self-care (01) ==
LOC: NEPE 01:49
DX: R56.9 Unspecified convulsions (principal); Z72.0 Tobacco use
CPT/HCPCS: 80048; 80307; 85025; 99283